=== PATIENT | female | born 1995 | race Caucasian/White ===

== ENCOUNTER 2016-12-14 04:19 | Emergency (ER) | payer MEDICAID ==
--- NOTE | 2016-12-14 04:50 | ED Physician Documentation ---
PD HPI CHEST PAIN - Stated complaint Stated Complaint: CHEST PAIN - Chief complaint Chief Complaint: Cardiac - History obtained from History obtained from: Patient - History of Present Illness Timing - onset: How many days ago (5) Timing - details: Intermittant Location: Right chest Worsened by: Inspiration Associated symptoms: Shortness of air, Nausea (In the mornings.). No: Vomiting Similar symptoms before: Has not had sx before - Additional information Additional information: The patient is an otherwise healthy 21-year-old female who presents with right anterior chest pain that has occurred intermittently for the past 5 days. With the discomfort she notices palpitations and mild shortness of breath. The pain is worse with inspiration. It usually lasts 10 minutes or less, and resolves spontaneously. She has noticed morning nausea, but denies vomiting. She denies cough, fever, or abdominal pain. Her last menstrual period was one month ago. She denies history of similar symptoms in the past. She does not smoke cigarettes. She has had no recent travel or prolonged sedentary periods. Review of Systems Constitutional: denies: Fever, Fatigue Ears: denies: Tinnitus/ringing Nose: denies: Congestion Throat: denies: Sore throat Cardiac: reports: Chest pain / pressure, Palpitations Respiratory: reports: Dyspnea. denies: Cough GI: reports: Nausea. denies: Abdominal Pain, Vomiting : reports: LMP (one month ago). denies: Dysuria Skin: denies: Rash Musculoskeletal: denies: Neck pain, Back pain, Extremity swelling Neurologic: denies: Focal weakness, Numbness, Headache PD PAST MEDICAL HISTORY - Past Medical History Past Medical History: Yes Cardiovascular: None Respiratory: None Neuro: None Endocrine/Autoimmune: None GI: None : None HEENT: None Psych: Anxiety Musculoskeletal: None Derm: None - Past Surgical History Past Surgical History: No - Present Medications Home Medications: Ambulatory Orders Medication Instructions Recorded Confirmed Ondansetron Odt [Zofran] 4 mg TL Q6H PRN #10 tablet 09/06/14 12/14/14 Azithromycin [Zithromax] 250 mg PO DAILY #4 tablet 12/14/14 HYDROcod/ACETAM 5/325 [Vicodin 1 tab PO Q6HR 12/14/14 12/14/14 5/325] Vit No.128/Iron/FA 1 tab PO DAILY 12/14/14 12/14/14 [ Formula] guaiFENesin/DEXTROMETHORPHAN 10 ml PO Q6HR PRN 12/14/14 12/14/14 [Robitussin Dm] - Allergies Allergies/Adverse Reactions: Allergies Allergy/AdvReac Type Severity Reaction Status Date / Time No Known Drug Allergies Allergy Verified 12/14/16 04:25 - Social History Does the pt smoke?: No Smoking Status: Never smoker Does the pt drink ETOH?: No Does the pt have substance abuse?: No - Immunizations Immunizations are current?: Yes - POLST Patient has POLST: No PD ED PE NORMAL - Vitals Vital signs reviewed: Yes (normal) - General General: Alert and oriented X 3, Well developed/nourished - HEENT HEENT: Atraumatic, EOMI, Ears normal, Pharynx benign - Neck Neck: Supple, no meningeal sign, No adenopathy, No JVD - Cardiac Cardiac: RRR, No murmur - Respiratory Respiratory: No respiratory distress, Clear bilaterally, Other (No chest wall tenderness to palpation.) - Abdomen Abdomen: Normal bowel sounds, Soft, Non tender, No organomegaly - Back Back: No CVA TTP - Derm Derm: No rash - Extremities Extremities: No edema, No calf tenderness / cord - Neuro Neuro: Alert and oriented X 3, No motor deficit, No sensory deficit Results - Vitals Vitals: Oxygen O2 Source Room air - EKG (time done) 04:46 Rate: Rate (enter#) (84) Rhythm: NSR [place]: Normal Intervals: Normal IN Other comments: Other comments (rSR' in V1, probably normal variant.) Computer interpretation: Agree with computer - Labs Labs: Laboratory Tests 12/14/16 04:37 Ur Specific [place] <=1.005 Urine HCG, Qual NEGATIVE - Rads (name of study) 2-view CXR Radiology: Prelim report reviewed, EMP read contemporaneously, See rad report ( No acute abnormality seen in the chest.) PD MEDICAL DECISION MAKING - ED course Complexity details: reviewed results, re-evaluated patient, considered differential, d/w patient ED course: The underlying cause of the patient's intermittent chest discomfort is not clearly determined at this time. Her presentation does not suggest cardiac etiology, and her electrocardiogram is completely normal. Chest x-ray is also normal, with no evidence of pneumothorax, pneumonia, or pneumomediastinum. I doubt pulmonary embolus, and pleurisy is unlikely given the intermittent nature of the patient's symptoms. Gastroesophageal reflux is a consideration, but her presentation is not typical for GERD. I discussed with her the results of her workup, outpatient follow-up, as well as potentially worrisome signs or symptoms that should prompt reevaluation in the emergency department. Departure - Departure Disposition: 01 Home, Self Care Clinical Impression: Chest pain Qualifiers: Chest pain type: chest pain on breathing Qualified Code(s): R07.1 - Chest pain on breathing Condition: Stable Instructions: ED Chest Pain NonCardiac Follow-Up: [facility] [Provider Group] Comments: You can use ibuprofen, up to 600 mg 3 times daily for its for inflammatory effect. Follow up with your primary physician within 2 weeks. Call to schedule an appointment. Return to the emergency department if you develop increasing chest pain, shortness of breath, or otherwise worsening symptoms. Discharge Date/Time: 12/14/16 06:17
[2016-12-14 04:53] LABS: HCG UR QUAL NEGATIVE
--- NOTE | 2016-12-14 05:29 | XRAY Preliminary Report ---
Exam: XR Chest 2 View PA/LAT IMPRESSION: 1. No acute abnormality seen in the chest. [facility] SITE ID: [id number]
--- NOTE | 2016-12-14 05:32 | XRAY Report ---
EXAM: CHEST RADIOGRAPHY EXAM DATE: 12/14/2016 05:19 AM. CLINICAL HISTORY: Right sided chest pain. COMPARISON: None. TECHNIQUE: 2 views. FINDINGS: Lungs/Pleura: No alveolar consolidation or pleural effusion. No pneumothorax. Mediastinum: Heart and mediastinal contours are unremarkable. Other: None. IMPRESSION: 1. No acute abnormality seen in the chest. [facility] Referring Provider Line: [phone] SITE ID: [id number]
[2016-12-14 06:17] VITALS: BP 116/70
== END 2016-12-14 06:17 | disposition home or self-care (01) ==
LOC: ED 04:19
DX: R07.9 Chest pain, unspecified (principal)
CPT/HCPCS: 71020; 81025; 93005; 99283; 99284

== ENCOUNTER 2016-12-15 09:30 | Outpatient (CLI) | payer MEDICAID | END 2016-12-15 09:45 | disposition home or self-care (01) | LOC: RT.N 09:30 | PROVIDERS: ATTEND Nurse Practitioner Gerontology | DX: R07.89 Other chest pain (principal) | CPT/HCPCS: 93005 ==

== ENCOUNTER 2017-02-26 08:00 | Outpatient (CLI) | payer MEDICAID ==
[2017-02-26 15:50] LABS: BILIRUBIN,URINE NEGATIVE (NEGATIVE)
[2017-02-26 16:00] LABS: UR CULTURE IF IND INDICATED
== END 2017-02-26 08:01 | disposition home or self-care (01) ==
LOC: LAB.R 08:00
PROVIDERS: ATTEND Obstetrics & Gynecology
DX: R30.0 Dysuria (principal)
CPT/HCPCS: 81001; 87086

== ENCOUNTER 2017-06-04 08:00 | Outpatient (CLI) | payer MEDICAID ==
[2017-06-04 13:31] LABS: BASOPHILS # (AUTO) 0.1 10^3/uL (0.0-0.1); BASOPHILS % (AUTO) 0.6 %; EOSINOPHILS # (AUTO) 0.1 10^3/uL (0.0-0.7); EOSINOPHILS % (AUTO) 1.2 %; HGB - HEMOGLOBIN 12.5 g/dL (12.0-16.0); LYMPHOCYTES % (AUTO) 44.4 %; MEAN CORPUSCULAR HGB CONC 34.1 g/dL (32.0-36.0); MEAN CORPUSCULAR VOLUME 85.1 fL (81.0-99.0); MEAN PLATELET VOLUME 10.3 fL (7.9-10.8); MONOCYTES # (AUTO) 0.6 10^3/uL (0.0-1.0); MONOCYTES % (AUTO) 6.6 %; NEUTROPHILS # (AUTO) 4.2 10^3/uL (1.5-6.6); NEUTROPHILS % (AUTO) 47.2 %; PLT - PLATELET COUNT 233 10^3/uL (130-450); RED BLOOD COUNT 4.31 10^6/uL (4.20-5.40); RED CELL DISTRIBUTION WIDTH 13.4 % (12.0-15.0)
[2017-06-04 13:51] LABS: ALBUMIN 4.1 g/dL (3.2-5.5); ALBUMIN/GLOBULIN RATIO 1.3 (1.0-2.2); ALKALINE PHOSPHATASE 61 IU/L (42-121); ALT ALANINE AMINOTRANSFERASE 25 IU/L (10-60); AST ASPARTATE AMINOTRANSFERASE 22 IU/L (10-42); BILIRUBIN,TOTAL 0.8 mg/dL (0.2-1.0); BUN - BLOOD UREA NITROGEN 7 mg/dL (6-20); CALCIUM 8.6 mg/dL (8.5-10.3); CARBON DIOXIDE - CO2 25 mmol/L (21-32); CHLORIDE 107 mmol/L (101-111); CHOL/HDL RATIO 3.7 (<4.4); CHOLESTEROL 133 mg/dL; CREATININE 0.6 mg/dL (0.4-1.0); GFR - MDRD 124 (>89); GLUCOSE 104 mg/dL (70-100); HDL CHOLESTEROL 36 mg/dL; LDL CHOLESTEROL,CALCULATED 69 mg/dL; LDL/HDL RATIO 1.9 (<4.4); SODIUM 136 mmol/L (135-145); TOTAL PROTEIN 7.2 g/dL (6.7-8.2); VLDL CHOLESTEROL 28 mg/dL
== END 2017-06-04 08:01 | disposition home or self-care (01) ==
LOC: LAB.N 08:00
PROVIDERS: ATTEND Nurse Practitioner Gerontology
DX: Z13.9 Encounter for screening, unspecified (principal)
CPT/HCPCS: 36415; 80053; 80061; 84443; 85025

== ENCOUNTER 2017-12-10 08:00 | Outpatient (CLI) | payer MEDICAID | END 2017-12-10 08:01 | disposition home or self-care (01) | LOC: LAB.R 08:00 | PROVIDERS: ATTEND Nurse Practitioner | DX: J02.0 Streptococcal pharyngitis (principal) | CPT/HCPCS: 87070 ==

== ENCOUNTER 2018-08-09 10:01 | Outpatient (CLI) | payer MEDICAID | END 2018-08-09 23:59 | disposition home or self-care (01) | LOC: RT.N 10:01 | PROVIDERS: ATTEND Nurse Practitioner Gerontology | DX: R07.89 Other chest pain (principal) | CPT/HCPCS: 93005 ==

== ENCOUNTER 2018-08-10 08:00 | Outpatient (CLI) | payer MEDICAID ==
[2018-08-10 19:11] LABS: BASOPHILS % (AUTO) 0.5 %; EOSINOPHILS # (AUTO) 0.1 10^3/uL (0.0-0.7); EOSINOPHILS % (AUTO) 1.2 %; HGB - HEMOGLOBIN 12.1 g/dL (12.0-16.0); LYMPHOCYTES # (AUTO) 2.9 10^3/uL (1.5-3.5); MEAN CORPUSCULAR HEMOGLOBIN 28.6 pg (27.0-31.0); MEAN CORPUSCULAR VOLUME 86.7 fL (81.0-99.0); MEAN PLATELET VOLUME 10.4 fL (7.9-10.8); MONOCYTES # (AUTO) 0.4 10^3/uL (0.0-1.0); MONOCYTES % (AUTO) 6.2 %; NEUTROPHILS # (AUTO) 3.7 10^3/uL (1.5-6.6); NEUTROPHILS % (AUTO) 52.1 %; PLT - PLATELET COUNT 227 10^3/uL (130-450); RED BLOOD COUNT 4.23 10^6/uL (4.20-5.40); RED CELL DISTRIBUTION WIDTH 13.5 % (12.0-15.0); WHITE BLOOD COUNT 7.1 x10^3/uL (4.8-10.8)
[2018-08-10 19:27] LABS: ALBUMIN 3.9 g/dL (3.2-5.5); ALBUMIN/GLOBULIN RATIO 1.1 (1.0-2.2); ALKALINE PHOSPHATASE 52 IU/L (42-121); ALT ALANINE AMINOTRANSFERASE 22 IU/L (10-60); AST ASPARTATE AMINOTRANSFERASE 19 IU/L (10-42); BILIRUBIN,TOTAL 1.3 mg/dL (0.2-1.0); BUN - BLOOD UREA NITROGEN 8 mg/dL (6-20); CALCIUM 8.7 mg/dL (8.5-10.3); CARBON DIOXIDE - CO2 25 mmol/L (21-32); CHLORIDE 104 mmol/L (101-111); CHOL/HDL RATIO 3.2 (<4.4); CHOLESTEROL 127 mg/dL; CREATININE 0.6 mg/dL (0.4-1.0); GFR - MDRD 123 (>89); GLUCOSE 93 mg/dL (70-100); HDL CHOLESTEROL 40 mg/dL; LDL CHOLESTEROL,CALCULATED 72 mg/dL; LDL/HDL RATIO 1.8 (<4.4); SODIUM 136 mmol/L (135-145); TOTAL PROTEIN 7.5 g/dL (6.7-8.2); VLDL CHOLESTEROL 15 mg/dL
== END 2018-08-10 23:59 | disposition home or self-care (01) ==
LOC: LAB.N 08:00
PROVIDERS: ATTEND Nurse Practitioner Gerontology
DX: Z13.9 Encounter for screening, unspecified (principal)
CPT/HCPCS: 36415; 80053; 80061; 83721; 84443; 85025

== ENCOUNTER 2019-02-19 01:47 | Emergency (ER) | payer MEDICAID ==
--- NOTE | 2019-02-19 02:07 | ED Physician Documentation ---
History of Present Illness - Stated complaint Stated Complaint: LEG SWELLING/PX - Chief complaint Chief Complaint: Wound - History obtained from History obtained from: Patient - History of Present Illness Timing: How many days ago (2-3) Pain level now: 3 Improved by: nothing Worsened by: palpation - Additonal information Additional information: c/o gradual onset and progressive left calf swelling, redness, pain. Denies injury. Area affected has been steadily increasing in size. Review of Systems Constitutional: reports: Chills. denies: Fever Cardiac: denies: Chest pain / pressure Respiratory: denies: Dyspnea, Cough Skin: reports: Rash (LLE) Musculoskeletal: reports: Extremity pain, Extremity swelling PD PAST MEDICAL HISTORY - Past Medical History Cardiovascular: None Respiratory: None Endocrine/Autoimmune: None GI: None : None HEENT: None Psych: Anxiety Musculoskeletal: None Derm: None - Past Surgical History Past Surgical History: No - Present Medications Home Medications: Ambulatory Orders Medication Instructions Recorded Confirmed Ondansetron Odt [Zofran] 4 mg TL Q6H PRN #10 tablet 09/06/14 12/14/14 Azithromycin [Zithromax] 250 mg PO DAILY #4 tablet 12/14/14 HYDROcod/ACETAM 5/325 [Vicodin 1 tab PO Q6HR 12/14/14 12/14/14 5/325] Vit No.128/Iron/FA 1 tab PO DAILY 12/14/14 12/14/14 [ Formula] guaiFENesin/DEXTROMETHORPHAN 10 ml PO Q6HR PRN 12/14/14 12/14/14 [Robitussin Dm] Clindamycin HCl [Clindamycin 300MG 300 mg PO Q6HR #27 capsule 02/19/19 CAP] - Allergies Allergies/Adverse Reactions: Allergies Allergy/AdvReac Type Severity Reaction Status Date / Time No Known Drug Allergies Allergy Verified 02/19/19 02:00 - Social History Does the pt smoke?: No Smoking Status: Never smoker Does the pt drink ETOH?: No Does the pt have substance abuse?: No - Immunizations Immunizations are current?: Yes - POLST Patient has POLST: No PD ED PE NORMAL - Vitals Vital signs reviewed: Yes - General General: Alert and oriented X 3, No acute distress, Well developed/nourished PD ED PE EXPANDED - Extremities MAGGY LE visual: 1 - rash (confluent erythema with sharp margins; hot to touch. no fluctuance), swelling, tenderness Results - Vitals Vitals: Vital Signs - 24 hr 02/19/19 02/19/19 01:56 03:57 Temperature 36.4 C L Heart Rate 99 82 Respiratory 17 17 Rate Blood Pressure 120/88 H 114/69 O2 Saturation 98 100 Oxygen O2 Source Room air - Rads (name of study) LLE US Radiology: Prelim report reviewed, See rad report PD MEDICAL DECISION MAKING - ED course Complexity details: reviewed results, re-evaluated patient, considered differential, d/w patient Departure - Departure Disposition: 01 Home, Self Care Clinical Impression: Cellulitis Condition: Good Instructions: ED Infec Skin Cellulitis Follow-Up: Vandana Guerrero, [facility] [Primary Care Provider] - (3-4 days if not improving) Prescriptions: Clindamycin HCl [Clindamycin 300MG CAP] 300 mg PO Q6HR #27 capsule Discharge Date/Time: 02/19/19 04:03
--- NOTE | 2019-02-19 03:43 | Ultrasound Report ---
Reason: atraumatic pain, swelling LLE Procedure Date: 02/19/2019 Accession Number: [id number] / [id number] Procedure: US - Duplex Ext Veins Left CPT Code: FULL RESULT: EXAM: LEFT LOWER EXTREMITY VENOUS ULTRASOUND EXAM DATE: 02/19/2019 03:18 AM. CLINICAL HISTORY: Atraumatic pain, swelling LLE. COMPARISON: None. TECHNIQUE: Real-time sonographic vascular imaging was performed by the refrigerating technician through the lower extremity utilizing both color-flow and Doppler spectral analysis. Multiple human resources hr representative static images were saved for review. FINDINGS: Common Femoral Vein (CFV): Normal. CFV-GSV Junction: Normal. Profunda Femoral Vein (PFV): Normal. Femoral Vein (FV) Prox: Normal. Femoral Vein (FV) Mid: Normal. Femoral Vein (FV) Dist: Normal. Popliteal Vein: Normal. Posterior Tibial Veins: Limited visualization. Given the limitations, no thrombus identified. Peroneal Veins: Limited visualization. Given the limitations, no thrombus identified. Contralateral Side CFV: Normal. Other: None. IMPRESSION: No evidence for deep venous thrombosis. [facility]
[2019-02-19] MEDS ORDERED: CLINDAMYCIN 150 MG CAPSULE PO STA (03:47)
[2019-02-19 03:59] VITALS: BP 114/69
== END 2019-02-19 04:03 | disposition home or self-care (01) ==
LOC: ED 01:47
DX: L03.116 Cellulitis of left lower limb (principal)
CPT/HCPCS: 93971; 99283; 99284; A9270

== ENCOUNTER 2019-07-25 12:41 | Outpatient (CLI) | payer MEDICAID ==
--- NOTE | 2019-07-26 16:57 | Ultrasound Report ---
Reason: TEST POSITIVE Procedure Date: 07/25/2019 Accession Number: [id number] / [id number] Procedure: US - OB First Trimester CPT Code: Final Report FULL RESULT: EXAM: FIRST TRIMESTER OBSTETRIC ULTRASOUND (Less than 11 weeks) EXAM DATE: 07/25/2019 01:14 PM. CLINICAL HISTORY: TEST POSITIVE. LMP: Unknown. COMPARISONS: None. TECHNIQUE: Transabdominal and transvaginal ultrasound examination with static image documentation. ASSESSMENT: Gestational Sac: Single intrauterine. Mean gestational sac diameter: 36.3 mm = 8 weeks/6 days. Embryo: CRL (crown-rump length) 24.7 mm = 9 weeks/1 day. Cardiac activity: 173 beats per minute. Yolk sac: 3.6 mm. Amniotic fluid: Not accurately assessed at this gestational age. Early placenta: Not visible at this gestational age. Other: No perigestational fluid collection demonstrated. MATERNAL STRUCTURES: Uterus: Anteverted. Cervix: Closed. Right Ovary/Adnexa: The ovary measures 2.3 x 1.4 x 2.3 cm, volume 3.9 cc. Unremarkable. Left Ovary/Adnexa: The ovary measures 2.9 x 2.6 x 2.4 cm, volume 9.5 cc. Unremarkable. Free Fluid: None. Other: None. IMPRESSION: 1. Single viable intrauterine at EGA 9 weeks/1 day with ANA 9 28 20 based on crown-rump length. 2. Assigned dating is ANA 9 28 20 based on current US. [facility]
== END 2019-07-25 12:42 | disposition home or self-care (01) ==
LOC: DI 12:41
PROVIDERS: ATTEND Obstetrics & Gynecology
DX: Z32.01 Encounter for pregnancy test, result positive (principal)
CPT/HCPCS: 76801

== ENCOUNTER 2019-08-01 08:00 | Outpatient (CLI) | payer MEDICAID ==
[2019-08-01 14:28] LABS: BILIRUBIN,URINE NEGATIVE (NEGATIVE); GLUCOSE, URINE (UA) NEGATIVE (NEGATIVE); KETONES,URINE (UA) NEGATIVE (NEGATIVE); LEUKOCYTE ESTERASE, URINE NEGATIVE (NEGATIVE); NITRITE,URINE NEGATIVE (NEGATIVE); OCCULT BLOOD,URINE SMALL (NEGATIVE); PH,URINE 8.5 PH (5.0-7.5); PROTEIN,URINE NEGATIVE (NEGATIVE); UROBILINOGEN,URINE 0.2 (NORMAL) E.U./dL (NORMAL)
[2019-08-01 14:41] LABS: CLARITY,URINE CLEAR (CLEAR)
[2019-08-01 14:43] LABS: AMPHETAMINE SCREEN,URINE NEGATIVE (NEGATIVE); BENZODIAZEPINES SCREEN, URINE NEGATIVE (NEGATIVE); COCAINE SCREEN URINE NEGATIVE (NEGATIVE); METHADONE SCREEN, URINE NEGATIVE (NEGATIVE); METHAMPHETAMINES SCREEN, URINE NEGATIVE (NEGATIVE); MUDS CUTOFF CONCENTRATIONS CUTOFF CONC BELOW:; OPIATE SCREEN, URINE NEGATIVE (NEGATIVE); OXYCODONE SCREEN, URINE NEGATIVE (NEGATIVE); PROPOXYPHENE SCREEN, URINE NEGATIVE (NEGATIVE); TRICYCLIC ANTIDEPRESSANT,URINE NEGATIVE (NEGATIVE)
[2019-08-01 14:49] LABS: BACTERIA,URINE Moderate /HPF (None Seen); RBC,URINE 0-5 /HPF (0-5); SQUAMOUS EPITHELIAL CELL,UR MOD Squamous (<= Few)
== END 2019-08-01 23:59 | disposition home or self-care (01) ==
LOC: LAB.R 08:00
PROVIDERS: ATTEND Nurse Practitioner Obstetrics & Gynecology
DX: Z36.89 Encounter for other specified antenatal screening (principal)
CPT/HCPCS: 80306; 81001; 87086

== ENCOUNTER 2019-08-01 12:08 | Outpatient (CLI) | payer MEDICAID ==
[2019-08-01 12:27] LABS: BASOPHILS # (AUTO) 0.1 10^3/uL (0.0-0.1); BASOPHILS % (AUTO) 0.5 %; EOSINOPHILS # (AUTO) 0.1 10^3/uL (0.0-0.7); EOSINOPHILS % (AUTO) 0.9 %; HGB - HEMOGLOBIN 11.8 g/dL (12.0-16.0); LYMPHOCYTES # (AUTO) 2.7 10^3/uL (1.5-3.5); LYMPHOCYTES % (AUTO) 28.8 %; MEAN CORPUSCULAR HEMOGLOBIN 29.7 pg (27.0-31.0); MEAN CORPUSCULAR HGB CONC 33.7 g/dL (32.0-36.0); MEAN CORPUSCULAR VOLUME 88.2 fL (81.0-99.0); MONOCYTES # (AUTO) 0.6 10^3/uL (0.0-1.0); MONOCYTES % (AUTO) 6.7 %; NEUTROPHILS # (AUTO) 5.9 10^3/uL (1.5-6.6); NEUTROPHILS % (AUTO) 62.6 %; PLT - PLATELET COUNT 270 10^3/uL (130-450); RED BLOOD COUNT 3.97 10^6/uL (4.20-5.40); RED CELL DISTRIBUTION WIDTH 12.7 % (12.0-15.0); WHITE BLOOD COUNT 9.5 x10^3/uL (4.8-10.8)
[2019-08-03 12:15] LABS: HEPATITIS C ANTIBODY NON-REACTIVE (NON-REACTIVE)
[2019-08-03 12:30] LABS: HEPATITIS B SURFACE ANTIGEN NON-REACTIVE (NON-REACTIVE)
[2019-08-03 14:51] LABS: HIV AG/AB 4TH GEN NON-REACTIVE (NON-REACTIVE)
== END 2019-08-01 12:09 | disposition home or self-care (01) ==
LOC: LAB 12:08
PROVIDERS: ATTEND Nurse Practitioner Obstetrics & Gynecology
DX: Z36.89 Encounter for other specified antenatal screening (principal)
CPT/HCPCS: 36415; 80306; 81001; 81599; 85025; 86592; 86762; 86803; 86850; 86900; 86901; 87086; 87340; 87389

== ENCOUNTER 2019-08-13 17:09 | Emergency (ER) | payer MEDICAID ==
[2019-08-13] MEDS ORDERED: SODIUM CHLORIDE 0.9% 1,000 ML IV STA (17:20)
[2019-08-13] MEDS ORDERED: METOCLOPRAMIDE 10 MG/2 ML VIAL IVP STA (17:21)
[2019-08-13 17:56] LABS: BASOPHILS % (AUTO) 0.4 %; EOSINOPHILS % (AUTO) 0.4 %; HGB - HEMOGLOBIN 12.1 g/dL (12.0-16.0); LYMPHOCYTES # (AUTO) 2.2 10^3/uL (1.5-3.5); LYMPHOCYTES % (AUTO) 19.9 %; MEAN CORPUSCULAR HEMOGLOBIN 29.4 pg (27.0-31.0); MEAN CORPUSCULAR HGB CONC 33.3 g/dL (32.0-36.0); MEAN CORPUSCULAR VOLUME 88.1 fL (81.0-99.0); MEAN PLATELET VOLUME 11.1 fL (7.9-10.8); MONOCYTES # (AUTO) 0.6 10^3/uL (0.0-1.0); MONOCYTES % (AUTO) 5.3 %; NEUTROPHILS # (AUTO) 8.1 10^3/uL (1.5-6.6); NEUTROPHILS % (AUTO) 73.6 %; PLT - PLATELET COUNT 289 10^3/uL (130-450); RED BLOOD COUNT 4.12 10^6/uL (4.20-5.40); RED CELL DISTRIBUTION WIDTH 12.7 % (12.0-15.0)
[2019-08-13 18:08] LABS: ALBUMIN 3.6 g/dL (3.2-5.5); BILIRUBIN,TOTAL 0.7 mg/dL (0.2-1.0); CALCIUM 8.9 mg/dL (8.5-10.3); CREATININE 0.5 mg/dL (0.4-1.0); TOTAL PROTEIN 7.2 g/dL (6.7-8.2)
[2019-08-13 18:13] LABS: BILIRUBIN,URINE NEGATIVE (NEGATIVE); GLUCOSE, URINE (UA) NEGATIVE (NEGATIVE); KETONES,URINE (UA) 15 mg/dL (NEGATIVE); LEUKOCYTE ESTERASE, URINE NEGATIVE (NEGATIVE); NITRITE,URINE NEGATIVE (NEGATIVE); OCCULT BLOOD,URINE SMALL (NEGATIVE); PROTEIN,URINE NEGATIVE (NEGATIVE); UROBILINOGEN,URINE 0.2 (NORMAL) E.U./dL (NORMAL)
[2019-08-13 18:19] LABS: CLARITY,URINE CLEAR (CLEAR)
[2019-08-13 18:23] LABS: BACTERIA,URINE Moderate /HPF (None Seen); RBC,URINE 0-5 /HPF (0-5); SQUAMOUS EPITHELIAL CELL,UR MANY Squamous (<= Few)
--- NOTE | 2019-08-13 18:40 | ED Physician Documentation ---
History of Present Illness - Stated complaint Stated Complaint: N/V/D - Chief complaint Chief Complaint: Abd Pain - History obtained from History obtained from: Patient - History of Present Illness Timing: How many days ago (3) Pain level max: 0 Pain level now: 0 - Additonal information Additional information: 24-year-old female approximately 11 weeks presents the emergency department with vomiting. She has been taking vitamin B6 without relief. No fevers. Has had some body aches. Occasional diarrhea. No urinary symptoms. Worse with eating and drinking. Nothing makes it better. No vaginal bleeding or fluid leakage. Review of Systems Cardiac: denies: Chest pain / pressure Respiratory: denies: Cough : denies: Dysuria, Frequency, Hesitancy Skin: denies: Rash PD PAST MEDICAL HISTORY - Past Medical History Cardiovascular: None Respiratory: None Endocrine/Autoimmune: None GI: None : None HEENT: None Psych: Anxiety Musculoskeletal: None Derm: None - Past Surgical History Past Surgical History: No - Present Medications Home Medications: Ambulatory Orders Medication Instructions Recorded Confirmed Vit No.128/Iron/FA 1 tab PO DAILY 12/14/14 08/13/19 [ Formula] Metoclopramide [Reglan] 10 mg PO Q6H PRN #20 tablet 08/13/19 - Allergies Allergies/Adverse Reactions: Allergies Allergy/AdvReac Type Severity Reaction Status Date / Time No Known Drug Allergies Allergy Verified 08/13/19 17:12 - Social History Does the pt smoke?: No Smoking Status: Never smoker Does the pt drink ETOH?: No Does the pt have substance abuse?: No - Immunizations Immunizations are current?: Yes - POLST Patient has POLST: No PD ED PE NORMAL - Vitals Vital signs reviewed: Yes - General General: Alert and oriented X 3, No acute distress - HEENT HEENT: Moist mucous membranes - Neck Neck: Supple, no meningeal sign - Cardiac Cardiac: RRR - Respiratory Respiratory: No respiratory distress, Clear bilaterally - Abdomen Abdomen: Soft, Non tender, Non distended - Back Back: No CVA TTP - Derm Derm: Warm and dry - Extremities Extremities: No edema - Neuro Neuro: Alert and oriented X 3 - Psych Psych: Normal mood, Normal affect Results - Vitals Vitals: Vital Signs - 24 hr 08/13/19 08/13/19 08/13/19 17:12 17:36 18:46 Temperature 36.5 C 37.0 C Heart Rate 88 76 76 Respiratory 14 18 16 Rate Blood Pressure 135/82 H 128/76 118/82 H O2 Saturation 100 100 100 Oxygen O2 Source Room air - Labs Labs: Laboratory Tests 08/13/19 08/13/19 08/13/19 17:40 17:40 18:00 WBC 11.0 H RBC 4.12 L Hgb 12.1 Hct 36.3 L MCV 88.1 MCH 29.4 MCHC 33.3 RDW 12.7 Plt Count 289 MPV 11.1 H Neut # (Auto) 8.1 H Lymph # (Auto) 2.2 [place] # (Auto) 0.6 Eos # (Auto) 0.0 Baso # (Auto) 0.0 Absolute Nucleated RBC 0.00 Nucleated RBC % 0.0 Sodium 131 L Potassium 3.4 L Chloride 97 L Carbon Dioxide 24 Anion Gap 10.0 BUN 6 Creatinine 0.5 Estimated GFR (MDRD) 150 Glucose 103 H Calcium 8.9 Total Bilirubin 0.7 AST 15 ALT 13 Alkaline Phosphatase 34 L Total Protein 7.2 Albumin 3.6 Globulin 3.6 Albumin/Globulin Ratio 1.0 Lipase 20 L Urine Color YELLOW Urine Clarity CLEAR Urine pH 7.0 Ur Specific [place] <=1.005 Urine Protein NEGATIVE Urine Glucose (UA) NEGATIVE Urine Ketones 15 H Urine Occult Blood SMALL H Urine Nitrite NEGATIVE Urine Bilirubin NEGATIVE Urine Urobilinogen 0.2 (NORMAL) Ur Leukocyte Esterase NEGATIVE Urine RBC 0-5 Urine WBC 0-3 Ur Squamous Epith Cells MANY Squamous H Urine Bacteria Moderate H Ur Microscopic Review INDICATED Urine Culture Comments NOT INDICATED PD MEDICAL DECISION MAKING - ED course Complexity details: reviewed results, re-evaluated patient, considered differential, d/w patient ED course: Patient with related vomiting. Feels better after IV fluids and Reglan. Tolerating p.o. without difficulty. No significant lab abnormalities. Urinalysis is contaminated. No symptoms of UTI. No vaginal bleeding. Patient counseled regarding signs and symptoms for which I believe and urgent re- evaluation would be necessary. Patient with good understanding of and agreement to plan and is comfortable going home at this time This document was made in part using voice recognition software. While efforts are made to proofread this document, sound alike and grammatical errors may occur. Departure - Departure Disposition: 01 Home, Self Care Clinical Impression: First trimester , related nausea and vomiting, antepartum Qualifiers: Weeks of gestation: 11 weeks Qualified Code(s): Z3A.11 - 11 weeks gestation of Condition: Good Instructions: ED Preg Morning Sickness Follow-Up: Vandana Guerrero ARNP [Primary Care Provider] - Within 1 week Prescriptions: Metoclopramide [Reglan] 10 mg PO Q6H PRN #20 tablet PRN Reason: Nausea / Vomiting Comments: Drink plenty of fluids and rest. Return if you worsen. Discharge Date/Time: 08/13/19 18:46
[2019-08-13 18:46] VITALS: BP 118/82
== END 2019-08-13 18:46 | disposition home or self-care (01) ==
LOC: ED 17:09
DX: O21.9 Vomiting of pregnancy, unspecified (principal); Z3A.11 11 weeks gestation of pregnancy
CPT/HCPCS: 36415; 80053; 81001; 83690; 85025; 96361; 96374; 99283; 99284; J2765; 81003; 87086

== ENCOUNTER 2019-09-08 07:00 | Outpatient (CLI) | payer MEDICAID | END 2019-09-08 23:59 | disposition home or self-care (01) | LOC: LAB 07:00 | PROVIDERS: ATTEND Nurse Practitioner Obstetrics & Gynecology | DX: Z36.8A Encounter for antenatal screening for other genetic defects (principal) | CPT/HCPCS: 36415; 81511; 81599 ==

== ENCOUNTER 2019-09-29 11:37 | Outpatient (CLI) | payer MEDICAID ==
--- NOTE | 2019-10-01 02:49 | Ultrasound Report ---
Reason: Procedure Date: 09/29/2019 Accession Number: [id number] / [id number] Procedure: US - OB Detailed Eval CPT Code: Final Report FULL RESULT: EXAM: COMPLETE OBSTETRICAL ULTRASOUND EXAM DATE: 09/29/2019 02:05 PM. CLINICAL HISTORY: anatomic survey. COMPARISON: 07/25/2019. TECHNIQUE: Real-time sonographic evaluation of the fetus performed by the production planner. Multiple small business representative static images were saved for review. DATING: Established EGA 18 weeks 4 days with ANA 02/26/2020 based on first ultrasound. EGA 18 weeks 5 days with ANA 02/25/2020 based on the current ultrasound. GENERAL EVALUATION [place] . Cardiac activity: 148 bpm. movement: Visualized. Presentation: Transverse with head to the maternal right. Placenta: Posterior position. No evidence for previa. Umbilical cord: 3 vessel cord. Central placental cord origin. Amniotic fluid: Subjectively normal. MVP 2.4 cm. BIOMETRY Bi-Parietal Diameter (BPD): 4.2 cm, 18 weeks 5 days Head Circumference (HC): 15.7 cm, 18 weeks 4 days Abdominal Circumference (AC): 14.0 cm, 19 weeks 3 days Femur Length (FL): 3.0 cm, 19 weeks 1 day Estimated Weight: 279 g, 81.9 percentile for 18 weeks 4 days. ANATOMY Profile/nasal bone, four-chamber heart, and spine are suboptimally seen due to position. There is a choroid plexus cyst measuring 0.7 x 0.4 cm. Otherwise, the intracranial structures, nose/lips, outflow tracts, stomach, abdominal wall and cord insertion, diaphragm, kidneys, bladder, and extremities were visualized and demonstrate no abnormality. MATERNAL STRUCTURES Uterus: Unremarkable. Cervix: Long and closed. Transabdominal length 4.4 cm. Right ovary/adnexa: Unremarkable. Left ovary/adnexa: Unremarkable. Free fluid: None. IMPRESSION: 1. Berg live intrauterine with gestational age 18 weeks 4 days based on first ultrasound. 2. Estimated weight is within expected limits for assigned dating. 3. Incomplete anatomic survey. Profile/nasal bone, four-chamber heart, and spine are suboptimally seen due to position. Choroid plexus cyst measuring 0.7 x 0.4 cm. No other anatomic abnormalities are detected at this time. [facility]
== END 2019-09-29 11:38 | disposition home or self-care (01) ==
LOC: DI 11:37
PROVIDERS: ATTEND Obstetrics & Gynecology
DX: Z36.8A Encounter for antenatal screening for other genetic defects (principal)
CPT/HCPCS: 76811

== ENCOUNTER 2019-10-12 14:19 | Outpatient (CLI) | payer MEDICAID ==
--- NOTE | 2019-10-14 09:07 | Ultrasound Report ---
Reason: SCREENING, F/U TO [facility] Procedure Date: 10/12/2019 Accession Number: [id number] / [id number] Procedure: US - OB F/U or Repeat CPT Code: Final Report FULL RESULT: EXAM: FOLLOW-UP OBSTETRICAL ULTRASOUND EXAM DATE: 10/12/2019 03:20 PM. CLINICAL HISTORY: screening, followup to [facility]AS. Profile/nasal bone, four-chamber heart, spine are previously suboptimally visualized. History of choroid plexus cyst. COMPARISON: OB DETAILED EVAL 09/29/2019 12:19 PM OB FIRST TRIMESTER 07/25/2019 12:49 PM. TECHNIQUE: Real-time sonographic evaluation of the fetus performed by the resource technician. Additional transvaginal imaging to more accurately evaluate cervical length/placental position/etc. Multiple authorization representative static images were saved for review. DATING: Established EGA 20 weeks, 3 days with ANA 02/26/2020 based on first ultrasound. EGA 20 weeks, 4 days with ANA 02/25/2020 based on stated dating. EGA 20 weeks, 6 days based on current ultrasound, ANA 02/23/2020. GENERAL EVALUATION [place] . Cardiac activity: 157 bpm. movement: Visualized. Presentation: Variable. Placenta: Posterior position. Amniotic fluid: Normal. MANUEL 17.2 cm. MVP 4.9 cm. BIOMETRY Bi-Parietal Diameter (BPD): 4.6 cm, 19 weeks, 5 days. Head Circumference (HC): 17.7 cm, 20 weeks, 1 day. Abdominal Circumference (AC): 17.1 cm, 22 weeks, 0 days. Femur Length (FL): 3.6 cm, 21 weeks, 2 days. Estimated Weight: 424 g, 88.3 percentile for 20 weeks, 4 days. ANATOMY profile/nasal bone, four-chamber heart and spine are visualized on the current study and appear unremarkable. Previously seen choroid plexus cysts are not as well-visualized compared to the prior study. MATERNAL STRUCTURES Unremarkable. IMPRESSION: 1. Berg live intrauterine with gestational age 20 weeks, 4 days based on stated dating. 2. Estimated weight is within expected limits for assigned dating. 3. profile/nasal bone, four-chamber heart and spine are visualized on the current study and appear unremarkable. [facility]
== END 2019-10-12 14:20 | disposition home or self-care (01) ==
LOC: DI 14:19
PROVIDERS: ATTEND Obstetrics & Gynecology
DX: Z36.8A Encounter for antenatal screening for other genetic defects (principal)
CPT/HCPCS: 76816

== ENCOUNTER 2019-12-07 13:20 | Outpatient (CLI) | payer MEDICAID ==
[2019-12-07 18:16] LABS: HGB - HEMOGLOBIN 10.5 g/dL (12.0-16.0); MEAN CORPUSCULAR HEMOGLOBIN 28.6 pg (27.0-31.0); MEAN CORPUSCULAR HGB CONC 32.3 g/dL (32.0-36.0); MEAN CORPUSCULAR VOLUME 88.6 fL (81.0-99.0); MEAN PLATELET VOLUME 12.3 fL (7.9-10.8); RED BLOOD COUNT 3.67 10^6/uL (4.20-5.40); RED CELL DISTRIBUTION WIDTH 12.9 % (12.0-15.0); WHITE BLOOD COUNT 8.2 x10^3/uL (4.8-10.8)
== END 2019-12-07 23:59 | disposition home or self-care (01) ==
LOC: LAB.WCP 13:20
PROVIDERS: ATTEND Obstetrics & Gynecology
DX: Z36.8A Encounter for antenatal screening for other genetic defects (principal); Z36.89 Encounter for other specified antenatal screening
CPT/HCPCS: 36415; 82950; 85027; 86850

== ENCOUNTER 2019-12-15 08:00 | Outpatient (CLI) | payer MEDICAID | END 2019-12-15 08:01 | disposition home or self-care (01) | LOC: LAB 08:00 | PROVIDERS: ATTEND Obstetrics & Gynecology | DX: O99.810 Abnormal glucose complicating pregnancy (principal); Z3A.00 Weeks of gestation of pregnancy not specified | CPT/HCPCS: 36415; 82951; 82952 ==

== ENCOUNTER 2020-01-30 08:00 | Outpatient (CLI) | payer MEDICAID ==
[2020-01-30 20:36] LABS: TRICHOMONAS VAGINALIS DNA NEGATIVE (NEGATIVE)
== END 2020-01-30 08:01 | disposition home or self-care (01) ==
LOC: LAB.R 08:00
PROVIDERS: ATTEND Obstetrics & Gynecology
DX: Z36.85 Encounter for antenatal screening for Streptococcus B (principal); Z11.3 Encounter for screening for infections with a predominantly sexual mode of transmission
CPT/HCPCS: 87491; 87591; 87661; 87797

== ENCOUNTER 2020-02-19 11:47 | Inpatient (IN) | payer MEDICAID ==
[2020-02-19] MEDS ORDERED: SODIUM CHLORIDE FLUSH 0.9% 10 ML SYRINGE IVP PRN (12:06)
[2020-02-19] MEDS ORDERED: METHYLERGONOVINE 0.2 MG/ML VIAL IM PRN (12:06)
[2020-02-19] MEDS ORDERED: OXYTOCIN/SODIUM CHLORIDE 500 ML IV PRN (12:06)
[2020-02-19] MEDS ORDERED: fentaNYL 100 MCG/2 ML VIAL IVP PRN ×2 (12:06→12:51)
[2020-02-19] MEDS ORDERED: TRANEXAMIC ACID 1,000 MG in SODIUM CHLORIDE 0.9% 100ML 100 ML IV PRN (12:06)
[2020-02-19] MEDS ORDERED: OXYTOCIN 10 UNIT/ML VIAL IM PRN (12:06)
[2020-02-19] MEDS ORDERED: miSOPROStoL 200 MCG TABLET BC PRN (12:06)
[2020-02-19] MEDS ORDERED: CARBOPROST TROMETHAMINE 250 MCG/ML AMP IM PRN (12:06)
[2020-02-19] MEDS ORDERED: METOCLOPRAMIDE 10 MG/2 ML VIAL IVP PRN ×2 (12:06→12:51)
[2020-02-19] MEDS ORDERED: LIDOCAINE-MPF 1% 30 ML VIAL ID PRN (12:06)
[2020-02-19] MEDS ORDERED: ONDANSETRON 4 MG/2 ML VIAL IVP PRN (12:06)
[2020-02-19 12:51] LABS: BASOPHILS # (AUTO) 0.1 10^3/uL (0.0-0.1); BASOPHILS % (AUTO) 0.5 %; EOSINOPHILS % (AUTO) 0.4 %; HGB - HEMOGLOBIN 10.6 g/dL (12.0-16.0); LYMPHOCYTES # (AUTO) 3.2 10^3/uL (1.5-3.5); MEAN CORPUSCULAR HEMOGLOBIN 27.4 pg (27.0-31.0); MEAN CORPUSCULAR HGB CONC 32.4 g/dL (32.0-36.0); MEAN CORPUSCULAR VOLUME 84.5 fL (81.0-99.0); MEAN PLATELET VOLUME 13.1 fL (7.9-10.8); MONOCYTES # (AUTO) 0.7 10^3/uL (0.0-1.0); NEUTROPHILS # (AUTO) 5.7 10^3/uL (1.5-6.6); NEUTROPHILS % (AUTO) 58.7 %; PLT - PLATELET COUNT 206 10^3/uL (130-450); RED BLOOD COUNT 3.87 10^6/uL (4.20-5.40); RED CELL DISTRIBUTION WIDTH 14.6 % (12.0-15.0); WHITE BLOOD COUNT 9.8 x10^3/uL (4.8-10.8)
[2020-02-19] MEDS ORDERED: LACTATED RINGERS 1,000 ML IV SCH ×2 (13:00→22:00)
[2020-02-19] MEDS: miSOPROStoL 100 MCG TABLET BC SCH ×2 (13:29→18:01)
[2020-02-19] MEDS: ACETAMINOPHEN 325 MG TABLET PO SCH ×3 (14:05→20:48)
[2020-02-19] MEDS ORDERED: SODIUM CHLORIDE FLUSH 0.9% 10 ML SYRINGE IVP SCH (17:00)
[2020-02-19] MEDS ORDERED: ROPIVACAINE 0.2% 0 MG/0 ML BAG EP ONE (19:31)
[2020-02-19] MEDS ORDERED: fentaNYL 100 MCG/2 ML VIAL ONE (19:31)
--- NOTE | 2020-02-19 21:08 | HISTORY & PHYSICAL EXAMINATION ---
Admit History - Visit Reason Visit Reason: Other (Early labor, scheduled for IOL this leroy) - : 3 Parity: 2 Care: positive: [facility] Complications This : positive: Gestational diabetes Smoking Status: Never smoker - Mother's Labs Mother's Blood Type: positive: O Mother's RH: positive: Positive GBS: positive: Group B Step Negative Rubella Status: positive: Immune - Other Maternal History Other Maternal History: Patient is a 24 yo at 39+0 wga with a complicated by A1DM, scheduled for IOL today, presented in early labor. She presented at approximately 12:00 reporting intermittent contractions. No LOF or VB. Endorses FM. Had been scheduled for IOL this pm for well controlled A1DM. Contractiosn were Q5-6. Decision was made to admit patient and start with induction/augmentation. Initial U/S: 07/25/2019 @ 9.1wks gestation gives ANA 02/26/2020 A1GDM O pos/Rubella imm Genetic testing: Quad screen wnl FAS: 83%ile, FAS wnl on fu exam. Posterior placenta Glucola 184/ failed 3h GTT TDAP 12/12/19 GBS & GC/CT at 36 weeks HSV: Denies MOD: Anticipate ; "wait and see" approach to pain management in labor. Pap 08/01/19 NILM Meds/Allgy - Home Medications Home Medications: Ambulatory Orders Medication Instructions Recorded Confirmed Vit No.128/Iron/FA 1 tab PO DAILY 12/14/14 08/13/19 [ Formula] Metoclopramide [Reglan] 10 mg PO Q6H PRN #20 tablet 08/13/19 - Allergies Allergies/Adverse Reactions: Allergies Allergy/AdvReac Type Severity Reaction Status Date / Time No Known Drug Allergies Allergy Verified 08/13/19 17:12 Review of Systems - Other Findings Other Findings: As per HPI, otherwise remaining systems are negative. Physical - Abdominal Exam Vital Signs: Temp Pulse Resp BP Pulse Ox 98.6 F 99 18 123/82 H 02/19/20 12:53 02/19/20 12:07 02/19/20 12:07 02/19/20 12:07 Contraction Frequency (min/apart): Q5-6 Contraction Intensity: positive: Mild to moderate - Monitoring Heart Rate Baseline: 135 mod suzie 15 x15 accels no decels Strip Review: positive: Category I - Presentation Presentation: positive: Vertex - Vaginal Exam Membranes: positive: Membranes intact Dilation (in cm): 1.5 Effacement (%): 50 Station: positive: -2 Cervical Position: positive: Midposition - Speculum Exam Speculum Exam Performed: positive: No - Other Notes Labor Progress Note/Additional Text: GEN: NAD HEENT: NCAT CV: RR RESP: nl effort ABD: gravid, S&NT SVE 1.5/50/-2, vertex by bedside us EXT: WPP NEURO: A&O PSYCH: appropriate affect. Plan for Labor - Plan For Labor Plan for Labor: LABOR/IOL: Presented with painful contractions. SVE shows patient to be early in labor course -Cervical ripening with misoprostol 50 mcg BC Q4 hours -Pitocin augmentation as indicated -AROM when appropriate GDM: Well controlled with diet -Cont with profile BG, 1 hour after meals when taking po and D1Agtol NPO FWB: Vertex by bedside us at admit, GBS neg, well grown , Cat I tracing -CEMF PAIN: Epidural as desired
[2020-02-19] MEDS ORDERED: DOCUSATE SODIUM 100 MG CAPSULE PO PRN (21:20)
[2020-02-19] MEDS ORDERED: ONDANSETRON ODT 4 MG TABLET TL PRN (21:20)
[2020-02-19] MEDS ORDERED: SIMETHICONE CHEW 80 MG TABLET PO PRN (21:20)
[2020-02-19] MEDS ORDERED: HYDROCORTISONE 1% CREAM 28 GM TUBE PR PRN (21:20)
--- NOTE | 2020-02-19 21:27 | DELIVERY NOTE ---
Delivery Note - Labor Labor: positive: Spontaneous, Other - Delivery Method Delivery Method: positive: Spontaneous vaginal delivery - Cervical Ripening Method Cervical Ripening Method: positive: Misoprostil - Presentation Presentation: positive: Vertex, Compound - Nuchal Cord Nuchal Cord: positive: None - Anesthetic Anesthetic Type: - Amniotic Fluid Description Amniotic Fluid Description: positive: Clear - Laceration Laceration: positive: 2nd degree - Suture Suture Type: positive: Vicryl Suture Size: positive: 3-0 - Delivery Outcome Delivery Outcome: positive: Livebirth - : positive: Placed in direct skin contact with mother, Stimulated, Warmed, [place] used sex: positive: Male - Cord Cord: positive: 3 vessels - Placenta Placenta: positive: Intact, Spontaneous - Estimated Blood Loss Estimated Blood Loss (in cc): 200 - Delivery Comments (Free Text/Narrative) Delivery Comments (Free Text/Narrative): STAGE I: Patient is a 24-year-old G3, P2 at 39+0 weeks estimated gestational age with complicated by A1 DM who presented in early labor at approximately 12:00 pm. Initial SVE was 1.5/50/-2. Given that patient was present and nash painfully, she was admittedPatient had been scheduled for an induction of labor this evening. She presented with painful contractions. For labor versus induction/augmentation.She was given misoprostol 50 mcg buccal x1 at 1404.She was GBS negative and antibiotic prophylaxis was not indicated. Second SVE at 18: 00 was 2.5/50/-2. She was given a second dose of misoprostol 50 mcg BC x1 at 18:12. At approximately 1900, patient requested an epidural. SVE was performed and she was found to be 8 to 9 cm/complete/-1 station.She progressed rapidly to complete at 19:13. She was unable to receive an epidural. Category 1 tracing throughout stage I. STAGE II: Patient underwent artificial rupture of membranes at 1913.She pushed well for less than 5 minutes to deliver a vigorus and viable male infant at 1920. Infant presented with a compound presentation with the right hand at the face posteriorly in MARVIN presentation. Left arm delivered anteriorly without difficulty. No nuchal cord. was delivered to maternal chest. Cord was clamped x2 and cut after pulsations had ceased. Weight 3715 g and Apgars 8/9. STAGE III: Placenta delivered spontaneously shortly after delivery of the infant. It was examined and found to be intact. Inspection of the perineum revealed a small second-degree midline laceration. It was repaired in the usual sterile fashion in layers using 3-0 Vicryl. Good hemostasis was noted. Total EBL was 200 cc. Procedure was well-tolerated without complication.
[2020-02-19] MEDS: IBUPROFEN 600 MG TABLET PO SCH (22:11)
[2020-02-20] MEDS: ACETAMINOPHEN 500 MG TABLET PO SCH ×3 (03:56→19:46)
[2020-02-20] MEDS: IBUPROFEN 600 MG TABLET PO SCH ×3 (03:57→16:05)
--- NOTE | 2020-02-20 08:15 | PROVIDER PROGRESS NOTE ---
Subjective - Prog Note Date Prog Note Date: 02/20/20 Prog Note Time: 08:13 - Subjective Subjective: Patient is up and ambulating, tolerating po, and voiding. Pain is well managed with pain medications. BF going well. Bottom in sore. Otherwsie, desires DC to home this pm pending clearance of baby for discharge. Objective - Vital Signs/Intake & Output Reviewed Vital Signs: Yes Vital Signs: Vital Signs x48h Temp Pulse Resp BP Pulse Ox 02/20/20 04:00 98.2 F 87 18 128/80 99 Intake & Output: Intake & Output 02/17/20 02/18/20 02/19/20 02/20/20 23:59 23:59 23:59 23:59 Intake Total 800 Output Total 300 Balance 500 - Objective General Appearance: positive: No acute distress Respiratory: positive: Chest non-tender, No respiratory distress, Breath sounds nml Cardiovascular: positive: Regular rate & rhythm Abdomen: positive: Non-tender, Other (soft, fundus firm below umbilicus) Back: positive: CVA tenderness (R) Extremities: positive: Non-tender, No pedal edema Neurologic/Psychiatric: positive: Oriented x3 - Lab Results Fish Bones: 02/19/20 12:07 02/19/20 12:25 Other Labs: Lab Results x24hrs 02/19/20 02/19/20 02/19/20 Range/Units 13:05 12:25 12:07 WBC 9.8 (4.8-10.8) x10^3/uL RBC 3.87 L (4.20-5.40) 10^6/uL Hgb 10.6 L (12.0-16.0) g/dL Hct 32.7 L (37.0-47.0) % MCV 84.5 (81.0-99.0) fL MCH 27.4 (27.0-31.0) pg MCHC 32.4 (32.0-36.0) g/dL RDW 14.6 (12.0-15.0) % Plt Count 206 (130-450) 10^3/uL MPV 13.1 H (7.9-10.8) fL Neut # (Auto) 5.7 (1.5-6.6) 10^3/uL Lymph # (Auto) 3.2 (1.5-3.5) 10^3/uL [place] # (Auto) 0.7 (0.0-1.0) 10^3/uL Eos # (Auto) 0.0 (0.0-0.7) 10^3/uL Baso # (Auto) 0.1 (0.0-0.1) 10^3/uL Absolute Nucleated RBC 0.00 x10^3/uL Nucleated RBC % 0.0 /100WBC Glucose 99 (70-100) mg/dL Blood Type O POSITIVE Antibody Screen NEGATIVE Assessment/Plan - Problem List (1) Vaginal delivery Impression: PPD#1: PM delivery -Meeting goals for discharge -Desires DC home pending clearance of infant -Will prepare for DC; routine DC instructions given Lidocaine for perineal pain.
--- NOTE | 2020-02-20 08:21 | Discharge Plan ---
Discharge Plan Problem Reviewed?: Yes Disposition: Home, Self Care Condition: Good Prescriptions: Benzocaine/Menthol [Dermoplast Pain Relieving [place]] 78 gm TP Q4HR PRN #1 aerosol PRN Reason: Pain Docusate Sodium 100 - 200 mg PO BID PRN #60 capsule PRN Reason: Constipation Ibuprofen [Motrin] 600 mg PO Q6H PRN #90 tab PRN Reason: Pain Acetaminophen [Tylenol Extra Strength] 500 - 1,000 mg PO Q8H PRN #90 tablet PRN Reason: Pain Diet: Regular Activity Restrictions: Additional Comments (Nothing in the vagina for 6 weeks: No intercourse, tampons, douching Call for: -Fever greater than 100.5 - Pain that does not improve with pain medication -Heavy bleeding in which you are soaking a pad an hour for 2 hours in a row) Shower Restrictions: No Plan of Treatment: Ibuprofen 600 mg by mouth every 6 hours as needed for pain Acetaminophen 500-1000 mg by mouth every 8 hours as needed for pain Docusate 100-200 mg by mouth twice a day as needed for constipation Dermaplast topical spray. [place] affected area every 4 hours as needed for pain Additional Instructions or Follow Up instructions: 2 hour oral glucose tolerance test in 6 weeks FU in clinic on one week No Smoking: If you smoke, Please STOP! Call for help. Follow-up with: Piyush Rockwell MD [Provider Admit Priv/Credential] -
[2020-02-20] MEDS ORDERED: LIDOCAINE JELLY 2% 6 ML JEL.PF.APP TOP SCH (09:00)
[2020-02-20 19:52] VITALS: BP 128/87
--- NOTE | 2020-02-20 20:50 | Labor Flowsheet ---
Labor Flowsheet Datetime Report Generated by CPN: 02/20/2020 20:49 Datetime: 02/20/2020 19:48 VITAL SIGNS NBP Sys/Maral/Mean (mmHg): 125 : 87 : 94 Pulse: 92 LaborFlag: Labor Datetime: 02/19/2020 20:12 Membranes Ruptured Date/Time: 02/19/2020 19:13 Amniotic Fluid Odor: Normal Datetime: 02/19/2020 19:25 COMMUNICATION Communication: Call/Page Placed to Provider Provider Notified (Name): A Nyla, PLATFORM ARCHITECT Communication Comments: Provider notified that patient had delivered Datetime: 02/19/2020 19:15 UTERINE ACTIVITY Monitor Mode: External Frequency (min): 2-3 Quality: Strong Duration (sec): 60-90 Pattern: Normal: <= 5 Contractions in 10 Minutes Resting Tone (Palpate): Relaxed ASSESSMENT A Monitor Mode: Telemetry FHR Baseline Rate : 135 Variability: Moderate 6-25 bpm Accelerations: None Decelerations: None Datetime: 02/19/2020 19:13 VAGINAL EXAM Dilatation (cm): 10.0 Exam by: Dr Todd Membrane Status: Ruptured Membranes Rupture Method: Artificial Amniotic Fluid Color: Clear Amniotic Fluid Amount: Moderate Vaginal Exam Comments: Starting to push Datetime: 02/19/2020 19:09 Stage of : Labor Respirations: 18 SpO2 (%): 99 Temperature (C): 37.0 PAIN Pain Scale: 10 Datetime: 02/19/2020 19:03 Pain Presence: Intermittent Pain Type: Cramping Pain Location: Abdomen Pain Coping: Breathing Through Contractions Pain Assessment Comments: Feels like she needs to push Comfort Measures: Breathing/Relaxation Patient Care Comments: Out of jacuzzi Datetime: 02/19/2020 19:00 Category: Category I Oxygen Method: Room Air Datetime: 02/19/2020 18:34 Monitor Interventions for UA: [place] Adjusted Datetime: 02/19/2020 18:30 Contraction Comments: Poor tracing due to maternal positioning Datetime: 02/19/2020 18:01 MEDICATIONS Cervical Ripening Agents: Cytotec @ Medication Comments: Buccal Datetime: 02/19/2020 18:00 Effacement (%): 50 Station: -2 Vaginal Bleeding: None Cervix, Consistency: Soft Cervix, Position: Posterior Datetime: 02/19/2020 17:58 Bedside Blood Glucose: 96 Datetime: 02/19/2020 17:54 Temperature Route: Oral Datetime: 02/19/2020 16:37 I/O Interventions: Up to BR Datetime: 02/19/2020 13:30 Comments: Maternal HR traced at time due to patient sitting up Datetime: 02/19/2020 13:08 Patient Position/Activity: Standing; Walking Datetime: 02/19/2020 12:53 MATERNAL ASSESSMENT Level of Consciousness: Alert Headache: Denies Breath Sounds, Left: Clear and Equal Breath Sounds, Right: Clear and Equal Nausea/Vomiting: Denies RUQ Epigastric Pain: Denies Datetime: 02/19/2020 12:25 PATIENT CARE IV/Blood Work: IV Started; Labs Drawn with IV Start; IV Saline Locked
== END 2020-02-20 20:25 | disposition home or self-care (01) | DRG 807 ==
LOC: WFO 11:47 → FBP 11:51 → WFO 12:05 → FBP 12:06
PROVIDERS: ADMIT Obstetrics & Gynecology; ATTEND Obstetrics & Gynecology
PROC: 10E0XZZ Delivery of Products of Conception, External Approach (ICD-10-PCS; principal; 2020-02-19)
PROC: 0KQM0ZZ Repair Perineum Muscle, Open Approach (ICD-10-PCS; 2020-02-19)
PROC: 10907ZC Drainage of Amniotic Fluid, Therapeutic from Products of Conception, Via Natural or Artificial Opening (ICD-10-PCS; 2020-02-19)
DX: O24.429 Gestational diabetes mellitus in childbirth, unspecified control (principal); Z37.0 Single live birth; O32.6XX0 Maternal care for compound presentation, not applicable or unspecified; O70.1 Second degree perineal laceration during delivery; Z3A.39 39 weeks gestation of pregnancy
CPT/HCPCS: 36415; 82947; 85025; 86850; 86900; 86901; A9270; J7120

== ENCOUNTER 2020-02-25 20:59 | Emergency (ER) | payer MEDICAID ==
--- NOTE | 2020-02-25 21:17 | ED Physician Documentation ---
History of Present Illness - Stated complaint Stated Complaint: WEAKNESS,BP CONCERN - Chief complaint Chief Complaint: Resp - History obtained from History obtained from: Patient - Additonal information Additional information: Patient is a 24-year-old female who presents with a chief complaint of shortness of breath that happened earlier today she denies any fevers or hemoptysis or lower extremity swelling denies any difficulty breathing currently. Patient states she is approximately 1 week from a spontaneous vaginal delivery that was uncomplicated. She denies any pelvic pain or abdominal pain she is currently breast-feeding denies any fever denies any pain in her breast. Denies any syncopal episodes currently she states she feels asymptomatic. Review of Systems Constitutional: reports: Reviewed and negative Eyes: reports: Reviewed and negative Ears: reports: Reviewed and negative Nose: reports: Reviewed and negative Throat: reports: Reviewed and negative Cardiac: reports: Reviewed and negative Respiratory: reports: Dyspnea GI: reports: Reviewed and negative : reports: Reviewed and negative Skin: reports: Reviewed and negative Musculoskeletal: reports: Reviewed and negative Neurologic: reports: Reviewed and negative Psychiatric: reports: Reviewed and negative Endocrine: reports: Reviewed and negative Immunocompromised: reports: Reviewed and negative PD PAST MEDICAL HISTORY - Past Medical History Cardiovascular: None Respiratory: None Endocrine/Autoimmune: None GI: None : None HEENT: None Psych: Anxiety Musculoskeletal: None Derm: None - Past Surgical History Past Surgical History: No - Present Medications Home Medications: Ambulatory Orders Medication Instructions Recorded Confirmed Vit No.128/Iron/FA 1 tab PO DAILY 12/14/14 08/13/19 [ Formula] Metoclopramide [Reglan] 10 mg PO Q6H PRN #20 tablet 08/13/19 Acetaminophen [Tylenol Extra 500 - 1,000 mg PO Q8H PRN #90 02/20/20 Strength] tablet Benzocaine/Menthol [Dermoplast 78 gm TP Q4HR PRN #1 aerosol 02/20/20 Pain Relieving [place]] Docusate Sodium 100 - 200 mg PO BID PRN #60 capsule 02/20/20 Ibuprofen [Motrin] 600 mg PO Q6H PRN #90 tab 02/20/20 - Allergies Allergies/Adverse Reactions: Allergies Allergy/AdvReac Type Severity Reaction Status Date / Time No Known Drug Allergies Allergy Verified 02/25/20 21:03 - Social History Does the pt smoke?: No Smoking Status: Never smoker Does the pt drink ETOH?: No Does the pt have substance abuse?: No - Immunizations Immunizations are current?: Yes - POLST Patient has POLST: No PD ED PE NORMAL - Vitals Vital signs reviewed: Yes - General General: Alert and oriented X 3, No acute distress, Well developed/nourished - HEENT HEENT: Atraumatic, PERRL, EOMI, Ears normal, Moist mucous membranes, Pharynx benign, Dentition benign - Neck Neck: Supple, no meningeal sign, No bony TTP, No adenopathy, Thyroid normal, No JVD, No bruit - Cardiac Cardiac: RRR, No murmur, No gallop, No rub, Strong equal pulses - Respiratory Respiratory: No respiratory distress, Clear bilaterally - Abdomen Abdomen: Normal bowel sounds, Soft, Non tender, Non distended, No organomegaly - Female Female : Deferred - Rectal Rectal: Deferred - Back Back: No CVA TTP, No spinal TTP - Derm Derm: Normal color, Warm and dry, No rash - Extremities Extremities: No deformity, No tenderness to palpate, Normal ROM s pain, No edema, No calf tenderness / cord - Neuro Neuro: Alert and oriented X 3, 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, No motor deficit, No sensory deficit, Normal speech - Psych Psych: Normal mood, Normal affect Results - Vitals Vitals: Vital Signs - 24 hr 02/25/20 02/25/20 02/25/20 21:03 21:21 23:15 Temperature 36.5 C 36.5 C 36.3 C L Heart Rate 96 96 101 H Respiratory 16 16 18 Rate Blood Pressure 124/81 H 124/81 H 126/91 H O2 Saturation 96 96 98 Oxygen O2 Source Room air - Labs Labs: Laboratory Tests 02/25/20 02/25/20 02/25/20 21:30 21:30 21:52 WBC 9.5 RBC 3.89 L Hgb 10.8 L Hct 33.6 L MCV 86.4 MCH 27.8 MCHC 32.1 RDW 15.0 Plt Count 254 MPV 11.5 H Neut # (Auto) 5.8 Lymph # (Auto) 2.9 [place] # (Auto) 0.6 Eos # (Auto) 0.1 Baso # (Auto) 0.0 Absolute Nucleated RBC 0.00 Nucleated RBC % 0.0 Sodium 139 Potassium 3.9 Chloride 108 Carbon Dioxide 23 Anion Gap 8.0 BUN 13 Creatinine 0.7 Estimated GFR (MDRD) 102 Glucose 105 H Calcium 9.1 Total Bilirubin 0.6 AST 28 ALT 33 Alkaline Phosphatase 90 Total Protein 6.9 Albumin 3.2 Globulin 3.7 Albumin/Globulin Ratio 0.9 L Lipase 27 Urine Color YELLOW Urine Clarity CLEAR Urine pH 6.5 Ur Specific [place] 1.015 Urine Protein NEGATIVE Urine Glucose (UA) NEGATIVE Urine Ketones NEGATIVE Urine Occult Blood MODERATE H Urine Nitrite NEGATIVE Urine Bilirubin NEGATIVE Urine Urobilinogen 0.2 (NORMAL) Ur Leukocyte Esterase NEGATIVE Urine RBC 6-10 H Urine WBC 4-5 Ur Squamous Epith Cells RARE Squamous Urine Bacteria Rare Ur Microscopic Review INDICATED Urine Culture Comments NOT INDICATED PD MEDICAL DECISION MAKING - ED course Complexity details: reviewed results, re-evaluated patient, d/w patient ED course: 24-year-old female who had an episode of shortness of breath that has since resolved. She also reports that she had some issues with her blood sugar while she was but did not require any treatment with medication. She had lab work done here that was unremarkable as well as a chest x-ray that was negative she is asymptomatic here in the emergency department her blood pressure is been approximately 120/80 she is afebrile she has an unremarkable physical exam she was observed for approximately 2 hours and she is well-appearing she has good follow-up at this point the patient will be given strict precautions to return for worsening shortness of breath or any concerns otherwise she should follow-up with a OB provider or her primary care provider this week. Patient has no tachycardia or exogenous estrogen use she did deliver approximately 1 week ago but it was a spontaneous vaginal delivery no personal or family history of DVT or PE no chest pain no unilateral leg swelling. Departure - Departure Disposition: 01 Home, Self Care Clinical Impression: SOB (shortness of breath) Condition: Stable Instructions: ED Dyspnea Shortness of Breath Follow-Up: Clover Salas MD [Provider Admit Priv/Credential] - Tomorrow Comments: Follow up with your pcp or OB provider this week for a recheck. return to the emergency department with any concerns. Discharge Date/Time: 02/25/20 23:14
[2020-02-25 21:52] LABS: BASOPHILS % (AUTO) 0.3 %; EOSINOPHILS # (AUTO) 0.1 10^3/uL (0.0-0.7); EOSINOPHILS % (AUTO) 1.3 %; HGB - HEMOGLOBIN 10.8 g/dL (12.0-16.0); LYMPHOCYTES # (AUTO) 2.9 10^3/uL (1.5-3.5); LYMPHOCYTES % (AUTO) 30.1 %; MEAN CORPUSCULAR HEMOGLOBIN 27.8 pg (27.0-31.0); MEAN CORPUSCULAR HGB CONC 32.1 g/dL (32.0-36.0); MEAN CORPUSCULAR VOLUME 86.4 fL (81.0-99.0); MEAN PLATELET VOLUME 11.5 fL (7.9-10.8); MONOCYTES # (AUTO) 0.6 10^3/uL (0.0-1.0); MONOCYTES % (AUTO) 6.7 %; NEUTROPHILS # (AUTO) 5.8 10^3/uL (1.5-6.6); NEUTROPHILS % (AUTO) 61.1 %; PLT - PLATELET COUNT 254 10^3/uL (130-450); RED BLOOD COUNT 3.89 10^6/uL (4.20-5.40); WHITE BLOOD COUNT 9.5 x10^3/uL (4.8-10.8)
[2020-02-25 22:06] LABS: BILIRUBIN,URINE NEGATIVE (NEGATIVE); GLUCOSE, URINE (UA) NEGATIVE (NEGATIVE); KETONES,URINE (UA) NEGATIVE (NEGATIVE); LEUKOCYTE ESTERASE, URINE NEGATIVE (NEGATIVE); NITRITE,URINE NEGATIVE (NEGATIVE); OCCULT BLOOD,URINE MODERATE (NEGATIVE); PH,URINE 6.5 PH (5.0-7.5); PROTEIN,URINE NEGATIVE (NEGATIVE); UROBILINOGEN,URINE 0.2 (NORMAL) E.U./dL (NORMAL)
[2020-02-25 22:07] LABS: CLARITY,URINE CLEAR (CLEAR)
[2020-02-25 22:08] LABS: ALBUMIN 3.2 g/dL (3.2-5.5); ALBUMIN/GLOBULIN RATIO 0.9 (1.0-2.2); BILIRUBIN,TOTAL 0.6 mg/dL (0.2-1.0); CALCIUM 9.1 mg/dL (8.5-10.3); CREATININE 0.7 mg/dL (0.4-1.0); TOTAL PROTEIN 6.9 g/dL (6.7-8.2)
[2020-02-25 22:15] LABS: BACTERIA,URINE Rare /HPF (None Seen); SQUAMOUS EPITHELIAL CELL,UR RARE Squamous (<= Few)
[2020-02-25 23:16] VITALS: BP 126/91
--- NOTE | 2020-02-26 09:13 | XRAY Report ---
PROCEDURE: Chest 1 View X-Ray INDICATIONS: dyspnea TECHNIQUE: One view of the chest was acquired. COMPARISON: Chest x-ray 12/14/2016 FINDINGS: Surgical changes and devices: None. Lungs and pleura: No pleural effusions or pneumothorax. Lungs are clear. Mediastinum: Mediastinal contours appear normal. Heart size is normal. Bones and chest wall: No suspicious bony lesions. Overlying soft tissues appear unremarkable. IMPRESSION: No acute pulmonary process. The above findings are concordant with preliminary report. Reviewed by: Pia Gaines MD on 02/26/2020 9:11 AM PDT Approved by: Pia Gaines MD on 02/26/2020 9:11 AM PDT Station ID: [id number]
== END 2020-02-25 23:14 | disposition home or self-care (01) ==
LOC: ED 20:59
DX: O90.89 Other complications of the puerperium, not elsewhere classified (principal); R06.02 Shortness of breath
CPT/HCPCS: 36415; 71045; 80053; 81001; 81003; 83690; 85025; 87086; 99283; 99284

== ENCOUNTER 2020-03-07 14:04 | Outpatient (CLI) | payer MEDICAID | END 2020-03-07 15:00 | disposition home or self-care (01) | LOC: WFO 14:04 → FBP 14:08 → WFO 15:00 | PROVIDERS: ATTEND Obstetrics & Gynecology | DX: O92.70 Unspecified disorders of lactation (principal) | CPT/HCPCS: 99403 ==

== ENCOUNTER 2020-04-02 08:00 | Outpatient (CLI) | payer MEDICAID ==
[2020-04-02 20:55] LABS: CANDIDA GROUP DNA NEGATIVE (NEGATIVE); CANDIDA KRUSEI DNA NEGATIVE (NEGATIVE); TRICHOMONAS VAGINALIS DNA NEGATIVE (NEGATIVE)
== END 2020-04-02 23:59 | disposition home or self-care (01) ==
LOC: LAB.R 08:00
PROVIDERS: ATTEND Obstetrics & Gynecology
DX: N89.8 Other specified noninflammatory disorders of vagina (principal)
CPT/HCPCS: 87661; 87801

== ENCOUNTER 2020-07-11 08:00 | Outpatient (CLI) | payer MEDICAID | END 2020-07-11 23:59 | disposition home or self-care (01) | LOC: LAB.R 08:00 | PROVIDERS: ATTEND Physician Assistant Medical | DX: R11.2 Nausea with vomiting, unspecified (principal); Z20.822 Contact with and (suspected) exposure to COVID-19 | CPT/HCPCS: 87275; 87276 ==

== ENCOUNTER 2022-03-11 11:46 | Outpatient (CLI) | payer MEDICAID ==
[2022-03-11 18:12] LABS: BASOPHILS # (AUTO) 0.1 10^3/uL (0.0-0.1); BASOPHILS % (AUTO) 0.8 %; EOSINOPHILS # (AUTO) 0.2 10^3/uL (0.0-0.7); EOSINOPHILS % (AUTO) 1.6 %; HCT - HEMATOCRIT 39.1 % (37.0-47.0); HGB - HEMOGLOBIN 12.9 g/dL (12.0-16.0); LYMPHOCYTES # (AUTO) 3.7 10^3/uL (1.5-3.5); MEAN CORPUSCULAR HEMOGLOBIN 28.8 pg (27.0-31.0); MEAN CORPUSCULAR VOLUME 87.3 fL (81.0-99.0); MEAN PLATELET VOLUME 12.1 fL (7.9-10.8); MONOCYTES # (AUTO) 0.7 10^3/uL (0.0-1.0); MONOCYTES % (AUTO) 6.6 %; NEUTROPHILS # (AUTO) 5.4 10^3/uL (1.5-6.6); NEUTROPHILS % (AUTO) 53.5 %; PLT - PLATELET COUNT 287 10^3/uL (130-450); RED BLOOD COUNT 4.48 10^6/uL (4.20-5.40); RED CELL DISTRIBUTION WIDTH 13.3 % (12.0-15.0)
[2022-03-11 18:52] LABS: % IRON SATURATION 32 % (20-50); ALBUMIN 4.1 g/dL (3.2-5.5); ALBUMIN/GLOBULIN RATIO 1.2 (1.0-2.2); ALKALINE PHOSPHATASE 63 IU/L (42-121); ALT ALANINE AMINOTRANSFERASE 36 IU/L (10-60); AST ASPARTATE AMINOTRANSFERASE 25 IU/L (10-42); BILIRUBIN,TOTAL 0.9 mg/dL (0.2-1.0); BUN - BLOOD UREA NITROGEN 9 mg/dL (6-20); CALCIUM 9.1 mg/dL (8.5-10.3); CARBON DIOXIDE - CO2 27 mmol/L (21-32); CHLORIDE 105 mmol/L (101-111); CHOL/HDL RATIO 3.4 (<4.4); CHOLESTEROL 141 mg/dL; CREATININE 0.6 mg/dL (0.4-1.0); GFR - MDRD 119 (>89); GLUCOSE 114 mg/dL (70-100); HDL CHOLESTEROL 42 mg/dL; IRON 105 ug/dL (28-170); LDL CHOLESTEROL,CALCULATED 75 mg/dL; LDL/HDL RATIO 1.8 (<4.4); POTASSIUM 4.3 mmol/L (3.5-5.0); SODIUM 138 mmol/L (135-145); THYROID STIMULATING HORMONE 1.41 uIU/mL (0.34-5.60); TOTAL IRON BINDING CAPACITY 332 ug/dL (250-450); TOTAL PROTEIN 7.6 g/dL (6.7-8.2); TRANSFERRIN 237 mg/dL (192-382); TRIGLYCERIDES 120 mg/dL; VLDL CHOLESTEROL 24 mg/dL
[2022-03-11 18:56] LABS: FERRITIN 24.4 ng/mL (11.0-306.8)
[2022-03-11 21:09] LABS: ESTIMATED AVERAGE GLUCOSE 128 mg/dL (70-100); HEMOGLOBIN A1c% 6.1 % (4.27-6.07)
== END 2022-03-11 11:47 | disposition home or self-care (01) ==
LOC: LAB.N 11:46
PROVIDERS: ATTEND Physician Assistant
DX: D64.9 Anemia, unspecified (principal); Z86.32 Personal history of gestational diabetes; Z13.29 Encounter for screening for other suspected endocrine disorder
CPT/HCPCS: 36415; 80053; 80061; 82728; 83036; 83540; 83721; 84443; 84466; 85025

== ENCOUNTER 2022-10-05 09:30 | Outpatient (CLI) | payer MEDICAID ==
[2022-10-05 14:04] LABS: CALCIUM 8.8 mg/dL (8.5-10.3); CREATININE 0.6 mg/dL (0.4-1.0)
[2022-10-05 14:38] LABS: ESTIMATED AVERAGE GLUCOSE 128 mg/dL (70-100); HEMOGLOBIN A1c% 6.1 % (4.27-6.07)
== END 2022-10-05 09:31 | disposition home or self-care (01) ==
LOC: LAB.N 09:30
PROVIDERS: ATTEND Physician Assistant
DX: R73.03 Prediabetes (principal)
CPT/HCPCS: 36415; 80048; 83036

== ENCOUNTER 2023-04-01 09:18 | Outpatient (CLI) | payer MEDICAID ==
[2023-04-01 12:19] LABS: BASOPHILS # (AUTO) 0.1 10^3/uL (0.0-0.1); BASOPHILS % (AUTO) 0.7 %; EOSINOPHILS # (AUTO) 0.2 10^3/uL (0.0-0.7); EOSINOPHILS % (AUTO) 1.6 %; HCT - HEMATOCRIT 39.2 % (37.0-47.0); HGB - HEMOGLOBIN 12.7 g/dL (12.0-16.0); LYMPHOCYTES # (AUTO) 4.3 10^3/uL (1.5-3.5); MEAN CORPUSCULAR HEMOGLOBIN 28.1 pg (27.0-31.0); MEAN CORPUSCULAR HGB CONC 32.4 g/dL (32.0-36.0); MEAN CORPUSCULAR VOLUME 86.7 fL (81.0-99.0); MEAN PLATELET VOLUME 11.7 fL (7.9-10.8); MONOCYTES # (AUTO) 0.6 10^3/uL (0.0-1.0); MONOCYTES % (AUTO) 6.1 %; NEUTROPHILS # (AUTO) 5.2 10^3/uL (1.5-6.6); NEUTROPHILS % (AUTO) 49.9 %; PLT - PLATELET COUNT 283 10^3/uL (130-450); RED BLOOD COUNT 4.52 10^6/uL (4.20-5.40); RED CELL DISTRIBUTION WIDTH 13.2 % (12.0-15.0); WHITE BLOOD COUNT 10.5 x10^3/uL (4.8-10.8)
[2023-04-01 12:37] LABS: ALBUMIN 4.2 g/dL (3.2-5.5); ALBUMIN/GLOBULIN RATIO 1.4 (1.0-2.2); ALKALINE PHOSPHATASE 62 IU/L (42-121); ALT ALANINE AMINOTRANSFERASE 37 IU/L (10-60); AST ASPARTATE AMINOTRANSFERASE 22 IU/L (10-42); BILIRUBIN,TOTAL 0.8 mg/dL (0.2-1.0); BUN - BLOOD UREA NITROGEN 8 mg/dL (6-20); CARBON DIOXIDE - CO2 29 mmol/L (21-32); CHLORIDE 105 mmol/L (101-111); CHOL/HDL RATIO 3.3 (<4.4); CHOLESTEROL 138 mg/dL; CREATININE 0.6 mg/dL (0.6-1.3); GFR - MDRD 118 (>89); GLUCOSE 115 mg/dL (74-104); HDL CHOLESTEROL 42 mg/dL; LDL CHOLESTEROL,CALCULATED 58 mg/dL; LDL/HDL RATIO 1.4 (<4.4); POTASSIUM 4.1 mmol/L (3.5-4.5); SODIUM 138 mmol/L (135-145); TOTAL PROTEIN 7.3 g/dL (6.4-8.9); TRIGLYCERIDES 188 mg/dL (48-352); VLDL CHOLESTEROL 38 mg/dL
[2023-04-01 12:47] LABS: THYROID STIMULATING HORMONE 2.11 uIU/mL (0.34-5.60)
[2023-04-01 13:28] LABS: ESTIMATED AVERAGE GLUCOSE 123 mg/dL (70-100); HEMOGLOBIN A1c% 5.9 % (4.27-6.07)
== END 2023-04-01 09:19 | disposition home or self-care (01) ==
LOC: LAB.N 09:18
PROVIDERS: ATTEND Physician Assistant
DX: R73.03 Prediabetes (principal); Z13.220 Encounter for screening for lipoid disorders
CPT/HCPCS: 36415; 80053; 80061; 83036; 83721; 84443; 85025

== ENCOUNTER 2023-09-29 08:00 | Outpatient (CLI) | payer BC, MEDICAID ==
[2023-10-04 06:08] LABS: BORDETELLA PARAPERTUSSIS DNA Negative (Negative); BORDETELLA PERTUSSIS DNA Negative (Negative)
== END 2023-09-29 23:59 | disposition home or self-care (01) ==
LOC: LAB.N 08:00
PROVIDERS: ATTEND Physician Assistant
DX: R05.1 Acute cough (principal)
CPT/HCPCS: 87798

== ENCOUNTER 2023-09-30 09:14 | Outpatient (CLI) | payer BC ==
[2023-09-30 12:45] LABS: ESTIMATED AVERAGE GLUCOSE 134 mg/dL (70-100); HEMOGLOBIN A1c% 6.3 % (4.27-6.07)
[2023-09-30 13:00] LABS: CALCIUM 9.3 mg/dL (8.5-10.3); CREATININE 0.7 mg/dL (0.6-1.3); POTASSIUM 4.2 mmol/L (3.5-4.5)
== END 2023-09-30 09:15 | disposition home or self-care (01) ==
LOC: LAB.N 09:14
PROVIDERS: ATTEND Physician Assistant
DX: R73.03 Prediabetes (principal); R05.1 Acute cough
CPT/HCPCS: 36415; 80048; 83036; 86665